=== PATIENT | female | born 1995 | race Two or more races ===

== ENCOUNTER 2018-02-13 15:18 | Emergency (ER) | payer OTHER ==
[~2018-02-13] VITALS: Ht 167.6 cm; Wt 63.5 kg
[~2018-02-13 15:18] MED LIST: IRON1 TAB.SA PO; PRENATAL + DHA1 EAC1
== END 2018-02-13 17:05 | disposition home or self-care (01) ==
LOC: ER 15:18
DX: G44.209 Tension-type headache, unspecified, not intractable (principal)

== ENCOUNTER 2020-01-05 12:44 | Emergency (ER) | payer OTHER ==
[~2020-01-05] VITALS: Ht 167.6 cm; Wt 68.0 kg
[2020-01-05] MEDS ORDERED: ZITHROMAX500 MG PO (15:50)
== END 2020-01-05 16:11 | disposition home or self-care (01) ==
LOC: ER 12:44
DX: R51 Headache (principal); B96.0 Mycoplasma pneumoniae [M. pneumoniae] as the cause of diseases classified elsewhere

== ENCOUNTER 2021-03-29 06:13 | Day surgery (SDC) | payer OTHER ==
[~2021-03-29 06:13] MED LIST changes: +ZITHROMAX500 MG PO
== END 2021-03-29 16:50 | disposition home or self-care (01) ==
LOC: CIR.AMB 06:13 → EDBD 10:15 → CIR.AMB 16:50
PROVIDERS: ATTEND Urology
DX: N36.1 Urethral diverticulum (principal); Z20.822 Contact with and (suspected) exposure to COVID-19

== ENCOUNTER 2025-04-10 11:40 | Emergency (ER) | payer OTHER ==
[~2025-04-10] VITALS: Ht 167.6 cm; Wt 71.7 kg
[2025-04-10 13:05] VITALS: BP 96/47; O2SAT 100
[2025-04-10] MEDS ORDERED: DEXAMETHASONE SODIUM PHOSPHATE 4 MG/ML VIAL IM ONE (14:15)
[2025-04-10] MEDS ORDERED: ONDANSETRON HCL 2 MG/ML VIAL IV ONE (14:15)
[2025-04-10] MEDS ORDERED: FAMOTIDINE/PF 20 MG/2 ML VIAL IV ONE (14:15)
[2025-04-10] MEDS ORDERED: KETOROLAC TROMETHAMINE 60 MG VIAL IM ONE ×2 (14:15→14:35)
[2025-04-10] MEDS ORDERED: ACETAMINOPHEN 500 MG GEL..CAP PO ONE ×2 (14:15→14:36)
[2025-04-10] MEDS ORDERED: ONDANSETRON HCL 2 MG/ML VIAL ONE (14:36)
[2025-04-10] MEDS ORDERED: FAMOTIDINE/PF 20 MG/2 ML VIAL ONE (14:36)
[2025-04-10 15:12] LABS: URINE APPEARANCE Clear; URINE BILIRRUBIN Negative (NEGATIVE); URINE BLOOD Small; URINE COLOR Yellow; URINE GLUCOSE Negative (NEGATIVE); URINE KETONE 15 (NEGATIVE); URINE LEUKOCYTE Trace; URINE NITRATE Negative; URINE PROTEIN Trace (NEGATIVE); URINE UROBILINOGEN 0.2 E.U./dl
[2025-04-10 15:13] LABS: URINE BACTERIA 217.1 uL (0.0-1933); URINE EPITHELIAL CELLS 12.9 uL (0.0-38.8); URINE RBC 15.3 uL (0.0-20.8); URINE WBC 31.0 uL (0.0-23.2)
[2025-04-10 15:30] LABS: URINE CAST 0.00 uL (0.0-1.40)
[2025-04-10 15:38] LABS: BASO % 0.2 % (0.1-1.2); EOS # 0.01 (0.04-0.54); EOS % 0.2 % (0.7-7.0); LYMPH # 1.25 (1.18-3.74); LYMPH % 20.6 % (19.3-53.1); MEAN PLATELET VOLUME 10.60 fl (9.4-12.4); MONO # 0.58 (0.24-0.82); MONO % 9.6 % (4.7-12.5); NEUT # 4.19 (1.56-6.13); NEUT % 69.1 % (34.0-71.1); RED CELL DISTRIBUTION WIDTH 13.2 % (11.6-14.4)
[2025-04-10 15:59] LABS: ALT/SGPT 34.0 U/L (12-78); AST/SGOT 19.0 U/L (15-37); BILIRUBIN TOTAL 0.43 mg/dL (0.3-1.2); BUN CREA RATIO 12.0 (7.0-25.0); CREATININE SERUM 0.68 mg/dL (0.55-1.02); GFR 103.79; GLOBULINA 3.3 G/DL (2.4-3.5); GLUCOSE FASTING 97.0 mg/dL (65-100); OSMOLALITY SERUM 274.0 MOSM/KG (275-295)
[2025-04-10 16:28] LABS: COVID-19 AG NEGATIVE (NEGATIVE)
== END 2025-04-10 21:22 | disposition home or self-care (01) ==
LOC: ER 11:41
DX: B34.9 Viral infection, unspecified (principal); Z20.822 Contact with and (suspected) exposure to COVID-19